=== PATIENT | female | born 1990 | race Caucasian/White ===

== ENCOUNTER 2016-07-23 16:55 | Emergency (ER) | payer OTHER ==
[2016-07-23 17:01] VITALS: BP 120/94
--- NOTE | 2016-07-23 17:43 | ED Physician Chart ---
Chief Complaint/HPI - Patient Information Date Seen:: 07/23/16 Time Seen:: 17:32 Chief Complaint:: SYNCOPAL EPISODE AT ABOUT 3:20 PM History of Present Illness:: This 26-year-old female awoke earlier today with nausea without vomiting or diarrhea. It is typical for the patient to have nausea early in the day. She is complained of fatigue throughout the day and denies headache, chest pain, abdominal pain or vaginal bleeding. The patient thinks that she is 3-4 days late on starting her menstrual period. Approximately 3:30 the patient has squatted down to remove something from a low shelf when she felt herself feeling faint and she experienced a blackout. Subsequent to the blackout the patient lost consciousness and she was told by bystanders that it was for a significant period of time although they didn't tell her how many minutes if she was unconscious for. He has no prior history of fainting episodes. No associated fever or chills. At the time she came out of the episode, the patient was feeling respiratory distress. Allergies:: Allergies Allergy/AdvReac Type Severity Reaction Status Date / Time No Known Allergies Allergy Verified 07/23/16 17:00 Vitals:: Vital Signs - 8 hr 07/23/16 17:00 Temp 98.1 F HR 104 RR 16 BP 120/94 O2 Sat % 98 Historian:: Patient LMP:: JUN 16 <Trae Dailey - Last Filed: 07/23/16 19:51> - Patient Information Allergies:: Allergies Allergy/AdvReac Type Severity Reaction Status Date / Time No Known Allergies Allergy Verified 07/23/16 17:00 Vitals:: Vital Signs - 8 hr 07/23/16 07/23/16 17:00 19:27 Temp 98.1 F 98.0 F HR 104 91 RR 16 19 BP 120/94 131/81 O2 Sat % 98 100 <Diaz Jovel - Last Filed: 07/23/16 22:42> Review of Systems - Review of Systems General/Constitutional: No fever, No chills, Weakness, No diaphoresis, No loss of appetite Skin: No rash, No bruising, Other (patient has some insect bites scattered about her body.) Head: No headache, Light headed Eyes: No pain, No diplopia ENT: No earache, No nasal drainage, No sore throat, No tinnitus Neck: No neck pain, No swelling, No thyromegaly, No mass noted Cardio Vascular: No chest pain, No palpitations, No edema Pulmonary: SOB, No cough, No sputum, No wheezing GI: Nausea, No vomiting, No diarrhea, No pain, No constipation G/U: No dysuria, No frequency, No hematuria, No nacturia Infection Prevention Coordinator: No vaginal discharge Musculoskeletal: No bone or joint pain, No back pain, No muscle pain Psychiatric: No prior psych history, No depression, Anxiety, No suicidal ideation Hematopoietic: No bruising Allergic/Immuno: No urticaria Neurological: Syncope, No focal symptoms, No paresthesia, No headache, No seizure, No confusion, No vertigo <Trae Dailey - Last Filed: 07/23/16 19:51> Family Medical History - Family Member Mother Hx Family Diabetes: Yes <Trae Dailey - Last Filed: 07/23/16 19:51> Labs/Radiology/EKG Results - Lab Results Results: Laboratory Tests 07/23/16 07/23/16 07/23/16 18:32 18:32 18:32 WBC 15.8 H RBC 4.98 Hgb 13.8 Hct 41.6 MCV 83.6 MCH 27.8 MCHC Differential 33.2 RDW 13.4 Plt Count 232 MPV 9.6 Neutrophils (Manual) 60 Lymphocytes 32 Monocytes 7 Eosinophils 1 Platelet Estimate ADEQUATE D-Dimer 494 H Sodium 138 Potassium 4.3 Chloride 108 H Carbon Dioxide 25.3 Anion Gap 9.0 BUN 14 Creatinine 0.8 Est GFR ( Amer) > 60.0 Est GFR (Non-Af Amer) > 60.0 BUN/Creatinine Ratio 17.5 Glucose 108 H Whole Bld Lactic Acid Calcium 9.5 Urine Source Urine Color Urine Clarity Urine pH Ur Specific [place] [employer] Urine Protein Urine Glucose (UA) Urine Ketones Urine Blood Urine Nitrate Urine Bilirubin Urine Urobilinogen Ur Leukocyte Esterase Urine RBC Urine WBC Ur Epithelial Cells Urine Bacteria Urine Test 07/23/16 07/23/16 07/23/16 18:40 18:40 19:48 WBC RBC Hgb Hct MCV MCH MCHC Differential RDW Plt Count MPV Neutrophils (Manual) Lymphocytes Monocytes Eosinophils Platelet Estimate D-Dimer Sodium Potassium Chloride Carbon Dioxide Anion Gap BUN Creatinine Est GFR ( Amer) Est GFR (Non-Af Amer) BUN/Creatinine Ratio Glucose Whole Bld Lactic Acid 0.48 L Calcium Urine Source CLEAN C Urine Color YELLOW Urine Clarity CLEAR Urine pH 7.0 Ur Specific [place] [employer] 1.025 Urine Protein NEGATIVE Urine Glucose (UA) NEGATIVE Urine Ketones NEGATIVE Urine Blood MODERATE H Urine Nitrate NEGATIVE Urine Bilirubin NEGATIVE Urine Urobilinogen 0.2 Ur Leukocyte Esterase NEGATIVE Urine RBC 25-50 H Urine WBC 0-2 Ur Epithelial Cells OCCASIONAL Urine Bacteria FEW Urine Test NEGATIVE - Radiology Results Results: CT angiogram chest preliminary report per radiology No evidence of PE Large gallbladder stone <Diaz Jovel - Last Filed: 07/23/16 22:42> ED Septic Shock - <6hrs of presentation: Vital Signs: Vital Signs - 8 hr 07/23/16 17:00 Temp 98.1 F HR 104 RR 16 BP 120/94 O2 Sat % 98 <Trae Dailey - Last Filed: 07/23/16 19:51> - . Is Septic Shock (SBP<90, OR Lactate>4 mmol\L) present?: No - <6hrs of presentation: Vital Signs: Vital Signs - 8 hr 07/23/16 07/23/16 17:00 19:27 Temp 98.1 F 98.0 F HR 104 91 RR 16 19 BP 120/94 131/81 O2 Sat % 98 100 <Diaz Jovel - Last Filed: 07/23/16 22:42> Reassessment (Disposition) - Reassessment Reassessment:: Blood pressure was noted to be elevated over 120/80. There were no signs of hypertension. Discussed the findings with the patient and recommended that the patient follow up with the primary care physician regarding the elevated blood pressure. Patient reports that she's had nausea all morning and went to work and had a syncopal episode. Appears that she had a vasovagal syncope. No significant past medical history. Imaging studies are unremarkable. Recommended follow-up with PCP for possible neurological consultation. Return to ER precautions given. Patient understands and agrees with the plan. Reassessment Condition:: Improved - Diagnosis Diagnosis:: Acute vasovagal syncope Elevated blood pressure without diagnosis of hypertension - Aftercare/Follow up Instructions Aftercare/Follow-Up Instructions:: Counseled pt regarding lab results/diagnosis & need follow up, Refer to Discharge Instructions - Patient Disposition Discharge/Transfer:: Home Time:: 22:42 Condition at Disposition:: Improved <Diaz Jovel - Last Filed: 07/23/16 22:42> ED Discharge Plan <Trae Dailey - Last Filed: 07/23/16 19:51> <Diaz Jovel - Last Filed: 07/23/16 22:42> - Patient Disposition Admit/Discharge/Transfer: PT DISCHARGED HOME Condition at Disposition: Improved Instructions: Vasovagal Syncope, Adult
[2016-07-23] MEDS ORDERED: Sodium Chloride 0.9% 1,000 ML IV ONE (17:53)
[2016-07-23 18:51] LABS: HEMATOCRIT 41.6 % (35.0-45.0); HEMOGLOBIN 13.8 gm/dL (11.7-15.5); MEAN CELL VOLUME 83.6 fl (81-100); MEAN CORPUSCULAR HEMOGLOBIN 27.8 pg (27.0-31.0); MEAN CORPUSCULAR HGB CONC 33.2 pg (28.0-36.0); MEAN PLATELET VOLUME 9.6 fl; PLATELET COUNT 232 Th/cmm (150-400); RED BLOOD COUNT 4.98 Mil/cmm (3.80-5.10); RED CELL DISTRIBUTION WIDTH 13.4 % (11.5-20.0)
[2016-07-23 18:55] LABS: BUN - UREA NITROGEN 14 mg/dL (7-25); BUN/CREATININE RATIO 17.5; CALCIUM SERUM 9.5 mg/dL (8.6-10.3); CARBON DIOXIDE 25.3 mEq/L (21.0-31.0); CHLORIDE 108 mEq/L (98-107); CREATININE - SERUM 0.8 mg/dL (0.6-1.2); GLUCOSE 108 mg/dL (70-105); POTASSIUM SERUM 4.3 mEq/L (3.5-5.1); SODIUM SERUM 138 mEq/L (136-145)
[2016-07-23 18:56] LABS: WHITE BLOOD COUNT 15.8 Th/cmm (4.8-10.8)
[2016-07-23 19:11] LABS: EOSINOPHIL 1 % (0-5); NEUTROPHILS 60 % (40-80); PLATELET ESTIMATE ADEQUATE (NORMAL); TOTAL CELLS COUNTED 100
[2016-07-23] MEDS ORDERED: IOHEXOL 350mg/mL 100mL Bottle IVP ONE (21:39)
[2016-07-23 21:57] LABS: URINE BILIRUBIN NEGATIVE (NEGATIVE); URINE BLOOD MODERATE (NEGATIVE); URINE COLOR YELLOW; URINE GLUCOSE (UA) NEGATIVE (NEGATIVE); URINE KETONE NEGATIVE (NEGATIVE); URINE PROTEIN NEGATIVE (NEGATIVE); URINE UROBILINOGEN 0.2 E.U./dL (0.2 - 1.0)
[2016-07-23 21:58] LABS: URINE BACTERIA FEW /hpf (NONE SEEN); URINE EPITHELIAL CELLS OCCASIONAL /lpf (FEW); URINE RBC 25-50 /hpf (0-5); URINE WBC 0-2 /hpf (0-5)
--- NOTE | 2016-07-24 09:12 | Diagnostic Imaging Report ---
INDICATION: Shortness of breath rule. Rule out pulmonary embolism. Technique: Serial axial images were performed through the chest using 3 mm slice thickness and interval following IV contrast administration CTDI is 11.6mGy. [id number] FINDINGS: No filling defects in the central branches of the pulmonary arteries is normal. Lung fieldsclear Heart size isnormal] No adenopathy. Noeffusion Images upper abdomen revealstone in the gallbladder without gallbladder wall thickening. No bony abnormalities IMPRESSION: No central pulmonary emboli. No acute cardiopulmonary pathology. Large stone in the gallbladder without gallbladder wall thickening.
--- NOTE | 2016-07-24 11:55 | ED Physician Chart ---
Chief Complaint/HPI - Patient Information Date Seen:: 07/23/16 Chief Complaint:: SYNCOPE History of Present Illness:: see HPI from initial report. Allergies:: Allergies Allergy/AdvReac Type Severity Reaction Status Date / Time No Known Allergies Allergy Verified 07/23/16 17:00 Review of Systems - Review of Systems General/Constitutional: Other ( See ROS from original report.) Past Medical History - Past Medical History Past Medical History: No significant medical hx Family Medical History - Family Member Mother Hx Family Diabetes: Yes Physical Exam - Physical Examination General/Constitutional: Awake, Alert, No distress, GCS 15, Non-toxic appearing, Ambulatory Other Gen/Cons comments:: Moderately overweight. Head: Atraumatic Other Head comments:: The patient had no visible or palpable evidence of head injury. Eyes: Lids, conjuctiva normal, PERRL, EOMI Other Eyes comments:: No nystagmus. Skin: Nl inspection, No rash, No skin lesions, No ecchymosis, Well hydrated ENMT: External ears, nose nl, Nasal exam nl, Lips, teeth, gums nl, Oropharynx nl , Tonsils nl Neck: Nontender, Full ROM w/o pain, No JVD, No nuchal rigidity, No mass Respiratory: Nl effort/Exclusion, Clear to Auscultation, No Wheeze/Rhonchi/Rales Cardio Vascular: No murmur, gallop, rubs, NL S1 S2 Other Cardio Vascular comments:: At the time of my initial exam the patient had a mild tachycardia which was regular. No murmurs were present. The patient had good pulses in all four extremities. GI: No tenderness/rebounding/guarding, No organomegaly, No hernia, Normal BS's, Nondistended, No mass/bruits, No McBurney tenderness Other GI comments:: Rectal examination deferred at my discretion : No CVA tenderness Extremities: No tenderness or effusion, Full ROM, normal strength in all extremities ( no peripheral edema. no calf tenderness. Negative Dixon's sign. ) Neuro/Psych: Alert/oriented, DTR's symmetric, Normal sensory exam, Normal motor strength, Judgement/insight normal, Mood normal, Normal gait, No focal deficits Misc: Normal back, No paraspinal tenderness Labs/Radiology/EKG Results - Lab Results Results: Laboratory Tests 04/07/23/16 07/23/16 18:32 18:32 18:32 WBC 15.8 H RBC 4.98 Hgb 13.8 Hct 41.6 MCV 83.6 MCH 27.8 MCHC Differential 33.2 RDW 13.4 Plt Count 232 MPV 9.6 Neutrophils (Manual) 60 Lymphocytes 32 Monocytes 7 Eosinophils 1 Platelet Estimate ADEQUATE D-Dimer 494 H Sodium 138 Potassium 4.3 Chloride 108 H Carbon Dioxide 25.3 Anion Gap 9.0 BUN 14 Creatinine 0.8 Est GFR ( Amer) > 60.0 Est GFR (Non-Af Amer) > 60.0 BUN/Creatinine Ratio 17.5 Glucose 108 H Whole Bld Lactic Acid Calcium 9.5 Urine Source Urine Color Urine Clarity Urine pH Ur Specific [place] Urine Protein Urine Glucose (UA) Urine Ketones Urine Blood Urine Nitrate Urine Bilirubin Urine Urobilinogen Ur Leukocyte Esterase Urine RBC Urine WBC Ur Epithelial Cells Urine Bacteria Urine Test 07/23/16 07/23/16 07/23/16 18:40 18:40 19:48 WBC RBC Hgb Hct MCV MCH MCHC Differential RDW Plt Count MPV Neutrophils (Manual) Lymphocytes Monocytes Eosinophils Platelet Estimate D-Dimer Sodium Potassium Chloride Carbon Dioxide Anion Gap BUN Creatinine Est GFR ( Amer) Est GFR (Non-Af Amer) BUN/Creatinine Ratio Glucose Whole Bld Lactic Acid 0.48 L Calcium Urine Source CLEAN C Urine Color YELLOW Urine Clarity CLEAR Urine pH 7.0 Ur Specific [place] 1.025 Urine Protein NEGATIVE Urine Glucose (UA) NEGATIVE Urine Ketones NEGATIVE Urine Blood MODERATE H Urine Nitrate NEGATIVE Urine Bilirubin NEGATIVE Urine Urobilinogen 0.2 Ur Leukocyte Esterase NEGATIVE Urine RBC 25-50 H Urine WBC 0-2 Ur Epithelial Cells OCCASIONAL Urine Bacteria FEW Urine Test NEGATIVE Assessment - Assessment General Assessment: CASE SUMMARY: : this 26-year-old female presented with a syncopal episode that occurred while she was at work. The patient had a premonition that she was going to faint when she blacked outt and lost vision. The patient then collapsed to the floor and was on conscience e for longer than a couple of seconds. . Witnesses did not tell the patient how long she was unconscious. . At the time of the incident the patient was having some difficulty breathing with no associated chest pain. . The patient has had no prior history of syncope. Past medical history is unremarkable. The patient does not drink or smoke. No illicit drug use. She works as a security site supervisor for [employer] . Or physical examination was unremarkable except for a mild sinus tachycardia. The EKG showed no evidence of cardiac ischemia or right heart strain. Laboratory studies showed a significant leukocytosis in the . 15,000 range. The patient also had an elevated D dimer level. She was treated with 1 L of normal saline administered IV. The CTA of the chest was ordered to rule out pulmonary embolism as the cause of . The syncope. . .:as passed on to Dr. Williamson at the termination of my shift. At that time the CTA of the chest was pending. Review of the chart shows that there was no evidence for pulmonary embolism on the CTA of the chest. It was my plan that if this was the case the patient was medically clear for discharge MDM DDX for .SYNCOPE: NOT Prolonged QT syndrome: based on the EKG. NOT Brugata's syndrome based on the EKG findings. NOT pulmonary embolus based on the CTA of the Chest. NOT Severe anemia based on the patient's normal hemoglobin level. NOT Subarachnoid bleed based on lack of headache and a normal neurologic examination. NOT Hypoglycemia or metagolic disorder based on the normal lab studies. NOT ectopic based on negative test. ED Septic Shock - . Is Septic Shock (SBP<90, OR Lactate>4 mmol\L) present?: No ED Discharge Plan - Patient Disposition Admit/Discharge/Transfer: PT DISCHARGED HOME Condition at Disposition: Improved Instructions: Vasovagal Syncope, Adult Forms: Work Release Form
== END 2016-07-23 23:00 | disposition home or self-care (01) ==
LOC: ER 16:55
DX: R55 Syncope and collapse (principal); R03.0 Elevated blood-pressure reading, without diagnosis of hypertension
CPT/HCPCS: 99285; 71275; 93005; 36415; 85379; 83605; 85007; 85027; 81001; 81025; 80048; 87040 ×2; Q9967; J7030